=== PATIENT | female | born 1955 | race Caucasian/White ===

== ENCOUNTER 2020-04-23 13:00 | Outpatient (CLI) | payer OTHER, SELFPAY ==
--- NOTE | ~2020-04-23 | XR_ITS ---
[id number]_CR DATE: 04/23/2020 13:11 INDICATION: Right neck pain, headaches TECHNIQUE: AP, open mouth and lateral views COMPARISON: None FINDINGS: Normal alignment of the cervical spine. There is moderate degenerative disc disease at C5-6. There is moderately severe degenerative disc disease at C6-7. There is 2 mm anterolisthesis at C7-T1. There is uncovertebral joint spurring at C5-6 and C6-7. No fracture or dislocation or locked facet or prevertebral soft tissue swelling. C1 and C2 are normal ly aligned and the odontoid process is intact. IMPRESSION: Degenerative changes involving primarily the lower cervical spine Reviewed, dictated and finalized at [facility]. Reviewed, dictated and finalized at [facility].
== END 2020-04-23 13:01 | disposition home or self-care (01) ==
LOC: ANHIMG 13:03
PROVIDERS: PCP Family Medicine; Visit Provider Physician Assistant
DX: M54.2 Cervicalgia (principal)
CPT/HCPCS: 72040